=== PATIENT | female | born 1975 | race Caucasian/White ===

== ENCOUNTER → 2017-12-26 | Outpatient (CLI) | payer OTHER | LOC: CAT 11:18 | DX: Z13.6 Encounter for screening for cardiovascular disorders (principal) ==

== ENCOUNTER → 2019-09-03 | Outpatient (CLI) | payer OTHER ==
--- NOTE | 2019-09-03 10:17 | 2DMMODE ---
[facility] [address] [place] [address] 2 D/M-MODE ECHOCARDIOGRAM Name: JASMINE BRUCE Room #: REG [facility]#: [id number] Admission: 09/03/19 Attend Phys: Robert Bullock Discharge: Date of : 71 Report #: [id number] THIS REPORT FOR: //name// APPROVED REPORT Study performed: 09/03/2019 09:14:43 EXAM: Comprehensive 2D, Doppler, and color-flow Echocardiogram Patient Location: Out-Patient Status: routine BSA: 1.74 HR: 70 bpm BP: 122/70 mmHg Other Information Study Quality: Good Indications Chest Pain 2D Dimensions RVDd: 34.56 mm IVSd: 10.23 (7-11mm) LVOT Diam: 20.06 (18-24mm) LVDd: 41.28 mm PWd: 9.73 (7-11mm) Ascending Ao: 29.72 (22-36mm) LVDs: 27.07 (25-40mm) Aortic Root: 29.40 mm Volumes Left Atrial Volume (Systole) Single Plane 4CH: 31.16 mL Single Plane 2CH: 45.85 mL LA ESV Index: 25.00 mL/m2 Aortic Valve AoV Peak Mark.: 1.36 m/s AO Peak Gr.: 7.36 mmHg LVOT Max P.32 mmHg LVOT Max V: 1.04 m/s PALOMA Vmax: 2.42 cm2 Mitral Valve E/A Ratio: 1.1 MV Decel. Time: 212.51 ms MV E Max Mark.: 0.77 m/s MV A Mark.: 0.67 m/s [facility] [address] [place] [address] 2 D/M-MODE ECHOCARDIOGRAM Name: JASMINE BRUCE Room #: [facility]#: [id number] Admission: 09/03/19 [facility]end [facility]: [facility] Discharge: Date of : 71 Report #: [id number] PHT: 61.63 ms IVRT: 89.97 ms Pulmonary Valve PV Peak Mark.: 0.83 m/s PV Peak Gr.: 2.77 mmHg Pulmonary Vein P Vein S: 0.53 m/s P Vein D: 0.32 m/s P Vein S/D Ratio: 1.66 Tricuspid Valve TR Peak Mark.: 2.22 m/s RAP Estimate: 5.00 mmHg TR Peak Gr.: 19.65 mmHg PA Pressure: 25.00 mmHg Left Ventricle The left ventricle is normal size. There is normal LV segmental wall motion. There is normal left ventricular wall thickness. The left ventricular systolic function is normal. LVEF is 55-60%. The diastolic function is abnormal. Right Ventricle The right ventricle is normal size. The right ventricular systolic function is normal. Atria The left atrium size is normal. The right atrium size is normal. Aortic Valve The aortic valve is normal in structure. No aortic regurgitation is present. There is no aortic valvular stenosis. Mitral Valve The mitral valve is normal in structure. Mild mitral regurgitation. No evidence of mitral valve stenosis. Tricuspid Valve The tricuspid valve is normal in structure. Mild to moderate tricuspid regurgitation. Estimated PAP is 25mmHg. Pulmonic Valve The pulmonary valve is normal in structure. Trace pulmonic regurgitation. [facility] [place] [address] 2 D/M-MODE ECHOCARDIOGRAM Name: JASMINE BRUCE Room #: [facility] Diamond#: [id number] Admission: 09/03/19 Attend Phys: [facility] Dis[facility]: Date of : 71 Report #: [id number] Great Vessels The aortic root is normal in size. The ascending aorta is normal in size. IVC is normal in size and collapses >50% with inspiration. Pericardium There is no pericardial effusion. <Conclusion> The left ventricle is normal size. LVEF is 55-60%. The aortic valve is normal in structure. The mitral valve is normal in structure. Mild mitral regurgitation. The tricuspid valve is normal in structure. Mild to moderate tricuspid regurgitation. Estimated PAP is 25mmHg. The pulmonary valve is normal in structure. Trace pulmonic regurgitation. There is no pericardial effusion. <ELECTRONICALLY SIGNED> By: Mitchel Kirk MD 09/03/19 [id number] Mitchel Kirk MD /INF
== END ==
LOC: CV 08:08
DX: I08.1 Rheumatic disorders of both mitral and tricuspid valves (principal); I49.3 Ventricular premature depolarization; E11.9 Type 2 diabetes mellitus without complications